=== PATIENT | male | born 1965 | race American Indian/Alaskan Native ===

== ENCOUNTER 2020-04-05 15:05 | Outpatient (CLI) | payer OTHER, SELFPAY ==
--- NOTE | ~2020-04-05 | XR_ITS ---
XR knee LT 3V DATE: 04/05/2020 15:30 INDICATION: Lateral and medial pain. No injury. TECHNIQUE: [place], AP and lateral views COMPARISON: None FINDINGS: There is prominent loss of height of the medial compartment joint space. There is mild periarticular spurring at all 3 compartments. There is hypertrophic change of the tibia l spines. No fracture or dislocation, periosteal reaction or bone destruction. 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 IMPRESSION: Tricompartment osteoarthritis involving particularly the medial com partment
== END 2020-04-05 15:06 | disposition home or self-care (01) ==
DX: M17.12 Unilateral primary osteoarthritis, left knee (principal)
CPT/HCPCS: 73562

== ENCOUNTER 2020-04-19 08:59 | Outpatient (CLI) | payer OTHER, SELFPAY ==
--- NOTE | ~2020-04-19 | MR_ITS ---
EXAMINATION: MR knee LT wo con DATE: 04/19/2020 09:53 INDICATION: Chronic left knee pain. Left knee osteoarthritis. TECHNIQUE: Magnetic resonance imaging (MRI) of the left knee was performed without intravenous contra st. Sequences included axial PD-weighted FS FSE, coronal PD-weighted FSE and PD-weighted FS FSE, sagi ttal PD-weighted FSE, and sagittal T2-weighted FS FSE. COMPARISON: Left knee radiographs 04/05/2020 FINDINGS: Medial compartment: There is a radial tear of body of medial meniscus. There is full-thickness cartilage loss of femoral condyle involving the central and medial articular surface with moderate subchondral edema-like signa l intensity. There is deep partial thickness cartilage loss of the posterior articular surface. There is full-thickness cartilage loss of tibial condyle involving the anterior and medial articular surfa ce with moderate subchondral edema-like marrow signal intensity. Marginal osteophytes are noted. Lateral compartment: Lateral meniscus is normal. Lateral compartment cartilage is normal. There are tiny marginal osteophy allyson. Patellofemoral compartment: There is deep partial thickness cartilage loss of involving patellar medial and lateral facets and me machelle ridge with mild subchondral edema-like marrow signal intensity. There is partial-thickness carti rajani loss of medial and lateral trochlea. Marginal osteophytes are noted. Ligaments and tendons: The anterior and posterior cruciate ligaments are normal. Medial collateral ligament and lateral rodrick ateral ligament complex are normal. There is mild patellar tendinopathy. Fluid: There is a large knee joint effusion. There are loose bodies in the posterior aspect of the knee join t measuring up to 12 mm. There is trace fluid in a Nice's cyst. There is mild prepatellar and superf icial infrapatellar bursitis. IMPRESSION: 1. Severe chondrosis of medial compartment and moderate chondrosis of patellofemoral compartment. 2. Tear of medial meniscus. 3. Large knee joint effusion with loose bodies. Reviewed, dictated and finalized at location A. IMPRESSION: 1. Severe chondrosis of medial compartment and moderate chondrosis of patellofe moral compartment. 2. Tear of medial meniscus. 3. Large knee joint effusion with loose bodies.
== END 2020-04-19 09:00 | disposition home or self-care (01) ==
DX: M25.562 Pain in left knee (principal); G89.29 Other chronic pain; M22.2X1 Patellofemoral disorders, right knee; S83.242A Other tear of medial meniscus, current injury, left knee, initial encounter; M25.462 Effusion, left knee; M23.42 Loose body in knee, left knee
CPT/HCPCS: 73721

== ENCOUNTER 2020-04-28 14:50 | Outpatient (CLI) | payer OTHER, SELFPAY ==
--- NOTE | 2020-04-28 14:52 | ECG_ITS ---
Measurements Intervals [place] Rate: 75 P: 24 MI: 180 QRS: 26 QRSD: 116 T: 39 QT: 386 QTc: 431 Interpretive Statements SINUS RHYTHM INTRAVENTRICULAR CONDUCTION DELAY BASELINE WANDER- AVF BORDERLINE ECG Electronically Signed On 04-28-2020 15:29:18 CDT by Mario Lerma D.O.
== END 2020-04-28 14:51 | disposition home or self-care (01) ==
PROVIDERS: PCP Family Medicine; Visit Provider Orthopaedic Surgery
DX: Z01.818 Encounter for other preprocedural examination (principal); E78.00 Pure hypercholesterolemia, unspecified
CPT/HCPCS: 93005

== ENCOUNTER 2020-05-08 00:25 | Outpatient (CLI) | payer OTHER, SELFPAY ==
[2020-05-08 17:13] LABS: SARS-CoV-2 RNA PCR Negative
== END 2020-05-08 00:26 | disposition home or self-care (01) ==
LOC: ANHCOVIDDT 00:25
PROVIDERS: Visit Provider Orthopaedic Surgery
DX: Z01.812 Encounter for preprocedural laboratory examination (principal); Z11.59 Encounter for screening for other viral diseases
CPT/HCPCS: 87635; C9803; U0003

== ENCOUNTER 2020-05-10 02:10 | Day surgery (SDC) | payer OTHER, SELFPAY ==
[2020-04-27 13:36] VITALS: BMI 28.2
[2020-05-10] VITALS (7 sets, daily range): BP systolic 146–179; BP diastolic 86–108; PULSE 59–75; RESP 11–18; TEMP 36–36.5; O2SAT 97–98
--- NOTE | 2020-05-10 07:31 | WPDHPUPDATE1 ---
History and Physical Update Update Date/Time: 05/10/20 07:31 History and Physical has been reviewed, including an updated exam of the patient. There are NO changes in the patient's condition. Risks, benefits, and alternatives have been discussed and questions answered. Patient agrees to proceed with procedure.
[2020-05-10] MEDS: LACTATED RINGERS 1,000 ML 30 ML IV CONT (09:00)
--- NOTE | 2020-05-10 09:07 | P.PNAN_ITS ---
Anes - Initial Pre Proc Eval Procedure: Operation Date: 05/10/20 10:30 Proposed Procedures p Left Knee Arthroscopy - Dewey Valle MD Date/Time: 05/10/20 09:07 Surgeon: Dewey Valle MD Pre Op Diagnosis: Left Medial Meniscus Tear Patient Data Age: 55 Gender: M Height: 1.88 m Weight: 99.79 kg Allergies Allergy/AdvReac Type Severity Reaction Status Date / Time No Known Allergies Allergy Verified 04/27/20 13:37 Home Medications Medication Instructions Recorded Confirmed Type aspirin 81 mg PO DAILY 04/27/20 04/27/20 History chlorhexidine gluconate 4 % 1 applic TOPICAL ONCE #237 ml 04/27/20 04/27/20 Rx topical liquid cholecalciferol (vitamin D3) 100 mcg PO DAILY 04/27/20 04/27/20 History [Vitamin D3] citalopram 20 mg PO DAILY 04/27/20 04/27/20 History meloxicam 15 mg PO DAILY 04/27/20 04/27/20 History multivitamin 1 tablet PO DAILY 04/27/20 04/27/20 History pravastatin 40 mg PO HS 04/27/20 04/27/20 History trazodone 150 mg PO HS 04/27/20 04/27/20 History ECG: Date of Service: 04/28/20 Procedure(s): CA 12 lead EKG Accession Number(s): [id number] cc: ~ Measurements Intervals [place] Rate: 75 P: 24 ND: 180 QRS: 26 QRSD: 116 T: 39 QT: 386 QTc: 431 Interpretive Statements SINUS RHYTHM INTRAVENTRICULAR CONDUCTION DELAY BASELINE WANDER- AVF BORDERLINE ECG Electronically Signed On 04-28-2020 15:29:18 CDT by Mario Lerma D.O. Dictated By: Mario Lerma DO 04/28/20 1522 Patient hx anesthesia problems: none Family hx anesthesia problems: none PMFSH Past Medical History Medical History (Updated 05/10/20 @ 09:09 by Dorian Fitzpatrick MD) Back pain Hearing loss Hypercholesterolemia Seasonal allergies Family History Family History (Updated 04/28/20 @ 11:14 by Jemma Mackenzie, RT(R)) Father Family history of malignant neoplasm of skin Acute myocardial infarction Other Arthritis Diabetes mellitus Heart disease Hypertension Malignant neoplasm Social History Social History (Updated 04/28/20 @ 11:14 by Jemma Mackenzie, RT(R)) Smoking status: Former smoker Smoking end date: 11/17/99 Alcohol intake: current Anes - Eval Final PreProcedure Day of Procedure 05/10/20 09:07 Patient weight: overweight Heart: regular rate and rhythm Lungs: clear to auscultation and normal air movement Airway: Mallampati scale class II Neurological: alert and oriented Last oral intake: >/= 8 hours ASA classification: II Emergent: no Anesthetic plan: proceed Anesthesia type and monitoring: general LMA Informed Consent: The patient's anesthetic plan and its attendant risks and benefits were discussed with the patient/family/POA. Questions were solicited and answers provided to the satisfaction of the patient/family/POA.
[2020-05-10] MEDS: CELECOXIB 200 MG CAPSULE PO (09:30)
[2020-05-10] MEDS: ceFAZolin 2 GM/D5W 50 ML 2 GM/50 ML BAG IVPB (10:20)
[2020-05-10] MEDS: KETOROLAC 30 MG/ML VIAL (*BKC) IV PUSH (11:11)
--- NOTE | 2020-05-10 11:30 | PM.OP ---
Procedure Note - Brief Procedure Note - Brief Date of procedure: 05/10/20 Pre-op diagnosis: Left Medial Meniscus Tear Post-op diagnosis: other (djd medial compartment) Procedure performed: left knee scope with partial medial meniscectomy, abrasion arthroplasty and major synovectomy Anesthesia: GLMA Surgeon: Dewey Valle MD Estimated blood loss (mL): 10 Complications: No immediate complications Condition: stable Disposition: PACU
--- NOTE | 2020-05-10 17:18 | OP_ITS ---
DATE OF PROCEDURE: 05/10/2020 PREOPERATIVE DIAGNOSIS: Left knee medial meniscus tear. POSTOPERATIVE DIAGNOSES: Left knee medial meniscus tear with full-thickness cartilage defects and medial femoral condyle and medial tibial plateau synovitis. PROCEDURE: Left knee arthroscopy with partial medial meniscectomy, abrasion arthroplasty, microfracture, and synovectomy. ANESTHESIA: General. COMPLICATIONS: None. INDICATIONS: This is a 55-year-old male who came in with medial-sided knee pain. He was found to have a medial meniscus tear and some mild arthrosis. He was indicated for right knee arthroscopy. DESCRIPTION OF PROCEDURE: The patient was taken to the operative room in stable condition, placed in supine position. General anesthesia was induced and then the left lower extremity was prepped and draped sterilely from the toes to the thigh. Superior medial portal used for the outflow cannula. Inferolateral portal was used for the camera. The camera was introduced. There was grade 2 chondromalacia to the patella and to the femoral groove. There was significant synovitis and Hoffa synovium in the superior medial compartment. The medial compartment was entered. There was a complex tear to the medial meniscus. There was a full-thickness defect of cartilage on the medial femoral condyle and the medial plateau. A medial portal was established. The meniscus was resected of its tear and smoothed down to a stable base. An abrasion arthroplasty was performed on the medial femoral condyle and the medial tibial plateau until there was really good bleeding bone. Synovectomy was performed in the lower medial compartment. The ACL was identified and was intact. Lateral compartment was entered. There was no significant chondromalacia and there was no tear of the lateral meniscus. Next, the patellofemoral joint underwent chondroplasty. Hoffa synovium was resected due to impingement on the knee in flexion. The instruments were removed after thorough irrigation of the knee joint. The wounds were approximated with 4-0 nylon suture. Sterile dressing was applied. The patient was extubated. Apolonia I MT: Alberto
== END 2020-05-10 12:56 | disposition home or self-care (01) ==
PROVIDERS: PCP Family Medicine; Visit Provider Orthopaedic Surgery
PROC: (CPT 29870; principal; 2020-05-10 10:30)
DX: M23.332 Other meniscus derangements, other medial meniscus, left knee (principal); M17.12 Unilateral primary osteoarthritis, left knee; M65.862 Other synovitis and tenosynovitis, left lower leg; M94.262 Chondromalacia, left knee; E78.00 Pure hypercholesterolemia, unspecified; Z79.82 Long term (current) use of aspirin; Z87.891 Personal history of nicotine dependence
CPT/HCPCS: 29881; 29879; A9270; J0131; J0690; J1100; J1170; J1885; J2250; J2405; J2704; J3010; J7120

== ENCOUNTER 2023-01-15 08:13 | Outpatient (CLI) | payer OTHER, SELFPAY ==
--- NOTE | ~2023-01-15 | CT_ITS ---
EXAMINATION: CT sinus wo con DATE: 01/15/2023 08:39 INDICATION: Sinusitis TECHNIQUE: Computed tomography (CT) of the paranasal sinuses was performed without intravenous contra st. The dose-length product was 299.51 mGy-cm. Automated exposure control and iterative reconstructio n technique were employed. COMPARISON: None FINDINGS: There is mild mucosal thickening of the maxillary and eighth white sinuses. No air-fluid le vels or mucoperiosteal reaction. There is leftward nasal septal deviation. Mastoids are pneumatized. Small kashmir bullosa. IMPRESSION: 1. Mild sinus disease of the maxillary and ethmoid sinuses. Reviewed, dictated and finalized at location B. NDLER
== END 2023-01-15 08:14 | disposition home or self-care (01) ==
PROVIDERS: Visit Provider Otolaryngology
DX: R09.82 Postnasal drip (principal); R44.8 Other symptoms and signs involving general sensations and perceptions; J32.9 Chronic sinusitis, unspecified; R05.9 Cough, unspecified; J34.3 Hypertrophy of nasal turbinates; J34.2 Deviated nasal septum; R09.81 Nasal congestion
CPT/HCPCS: 70486

== ENCOUNTER 2023-03-11 15:08 | Outpatient (CLI) | payer OTHER, SELFPAY ==
--- NOTE | 2023-03-11 15:19 | ECG_ITS ---
Measurements Intervals [place] Rate: 69 P: 30 [place]: 188 QRS: 26 QRSD: 117 T: 35 QT: 409 QTc: 440 Interpretive Statements SINUS RHYTHM MODERATE INTRAVENTRICULAR CONDUCTION DELAY [110+ ms QRS DURATION] COMPARED TO ECG 04/28/2020 15:22:07 NO SIGNIFICANT CHANGES Electronically Signed On 03-12-2023 9:34:30 CDT by Daria Bruce M.D.
== END 2023-03-11 15:09 | disposition home or self-care (01) ==
LOC: ANHSURGERY 15:12
PROVIDERS: PCP Family Medicine; Visit Provider Otolaryngology
DX: E78.00 Pure hypercholesterolemia, unspecified (principal)
CPT/HCPCS: 93005

== ENCOUNTER 2023-03-14 01:22 | Day surgery (SDC) | payer OTHER, SELFPAY ==
--- NOTE | 2023-03-10 09:07 | PC.NURSE ---
Report to the Outpatient Waiting Room, entrance under the green pavilion located off [facility], at time 0645_ on date _03/14/23. Planned Procedure Time: 0845_. Time changes happen often and if your time is changed the preop area will call you the afternoon before. - You and your visitor will be asked to self-screen and do not enter if you have any COVID symptoms. - A mask is optional within the hospital at this time. Patients may have clear liquids (water, carbonated beverages, clear teas, apple juice) until 3 hours prior to surgery with a maximum of 20 ounces. - No food from midnight until time of surgery - Infants may have breast milk until 4 hours before surgery, formula 6 hours prior to surgery. - Children will be allowed to drink immediately following surgery. If applicable, please bring a bottle or sippy cup to assist with drinking. Juice, water, soda, and popsicles are readily available. For infants on formula, please bring formula the day of surgery. Pacifiers are allowed. Take the following medications with a SIP of water the morning of surgery: __CITALOPREM, FAMOTIDINE DO NOT STOP ANY OF YOUR OTHER PRESCRIPTION MEDICATIONS PRIOR TO SURGERY ?EXCEPT THE FOLLOWING Medications to discontinue per physician SUPPLIMENTS CALL ABOUT_ INSTRUCTIONS INSTRUCTIONS FOR ASPIRIN Date to take last dose 03/11/23 Please no make-up, nail greek, hairspray, perfume, deodorant, or body powder the day of surgery. No jewelry (including any body piercings) or valuables the day of surgery, leave them at home. Please take a shower or bath the night before, or the morning of, surgery with an antibacterial soap. Wear comfortable, loose fitting clothing. Children are encouraged to wear pajamas. - Jewelry must be removed prior to entering the operating room. Rings and piercings that are not removed may be cut off. - The hospital will not accept responsibility for valuables. - Please leave all valuables, including medications, at home the day of surgery. If you are going home after surgery, a licensed electric mule driver must drive you home. - NO public transportation without another adult if you receive anesthesia. - We recommend that an adult stay with you for 24 hours following discharge. - We also recommend that you do not drive, make important decision, drink alcoholic beverages, or take any drugs that were not prescribed by your health care provider for at least 24 hours after your discharge time. For Pediatric surgeries, we recommend two adults accompany the child home. Follow any additional instructions given to you from your surgeon. If you or anyone in your household have experienced Covid symptoms in the past week, please notify your surgeon or the nurse liaison at the phone number below for possible testing. Telephone instructions given to LawrenceLucilaeliza asked if any additional questions and then verbalized understanding. Patient advised to call surgeon office or pre surgery nurse liaison [phone] if any additional questions.
[2023-03-10 09:16] VITALS: BMI 29.4
[2023-03-14] VITALS (8 sets, daily range): BP systolic 111–130; BP diastolic 67–90; PULSE 64–84; RESP 16–18; TEMP 36.2–36.3; O2SAT 95–100; BMI 28.2
[2023-03-14] MEDS: LACTATED RINGERS 1,000 ML 30 ML IV CONT ×2 (06:44→11:52)
--- NOTE | 2023-03-14 07:16 | WPDHPUPDATE1 ---
History and Physical Update Update Date/Time: 03/14/23 07:16 History and Physical has been reviewed, including an updated exam of the patient. There are NO changes in the patient's condition. Risks, benefits, and alternatives have been discussed and questions answered. Patient agrees to proceed with procedure.
--- NOTE | 2023-03-14 07:16 | PM.IMHP ---
H&P: HPI History of Present Illness Date/Time: 03/14/23 07:16 Chief Complaint: Chronic sinusitis, nasal obstruction, bilateral kashmir bullosa, hypertrophied turbinates, septal deviation Narrative: Planned procedure Review of Systems Review of Systems: All systems reviewed & are unremarkable except as noted in HPI and below [facility] Past Medical History Medical History (Updated 03/14/23 @ 07:18 by John Figueroa MD) Back pain Hearing loss Hypercholesterolemia Seasonal allergies Family History Family History Father Family history of malignant neoplasm of skin Acute myocardial infarction Other Arthritis Diabetes mellitus Heart disease Hypertension Malignant neoplasm Social History Social History Smoking packs per day: 0.05 Smoking cigarettes per day: 1.0 Years smoked: 5 Smoking pack-years: 0.25 Smoking status: Former smoker Smoking end date: 11/17/99 Additional smoking assessment comments: STOPPED 2002 Alcohol intake: current Drinks per week: 14 Alcohol use details: Frequent, daily alcohol consumption Substance use: never Lack of Transportation: No Lack of Food: Never True Current Housing: I Have Housing Concerned About Future Housing: No Difficulty Paying Gas/Electric Bills: No Difficulty Paying for Meds: No Currently Unemployed: No Education: Trade/Vocational Certificate Difficulty w/ Childcare or Family Care: No Living arrangements: with family Gender identity (if verbalized by the patient): Male Meds Home Medications and Allergies Home Medications Medication Instructions Recorded Confirmed Type aspirin 81 mg tablet,delayed 81 mg PO DAILY 04/27/20 03/10/23 History release cholecalciferol (vitamin D3) 100 100 mcg PO DAILY 04/27/20 03/10/23 History mcg (4,000 unit) capsule (Vitamin D3) citalopram 20 mg tablet 20 mg PO DAILY 04/27/20 03/10/23 History meloxicam 15 mg tablet 15 mg PO DAILY 04/27/20 03/10/23 History multivitamin 1 tablet PO DAILY 04/27/20 03/10/23 History pravastatin 40 mg tablet 40 mg PO HS 04/27/20 03/10/23 History trazodone 150 mg tablet 150 mg PO HS 04/27/20 03/10/23 History [place] 5 mg-325 mg tablet 1 tablet PO Q6H PRN pain #60 tabs 05/10/20 03/10/23 Rx (hydrocodone-acetaminophen) famotidine 20 mg tablet 20 mg PO DAILY 10/02/22 03/10/23 History azelastine 137 mcg (0.1 %) nasal 1 spray intranasal Q12H #30 mL 10/23/22 03/10/23 Rx spray aerosol fluticasone propionate 50 1 - 2 spray intranasal BID PRN 03/10/23 03/10/23 History mcg/actuation nasal ALLERGIES spray,suspension (Flonase Allergy Relief) Allergies Allergy/AdvReac Type Severity Reaction Status Date / Time No Known Allergies Allergy Verified 03/10/23 08:59 Exam Narrative: septal deviation, hypertrophied kash[place], large turbinates Assessment and Plan Assessment and plan (1) Chronic sinusitis: Code(s): J32.9 - Chronic sinusitis, unspecified Status: Acute Assessment and Plan: OR for endoscopic assisted septoplasty inferior turbinate submucosal reduction with outfracture resection of bilateral kashmir bullosa bilateral image guided endoscopic maxillary antrostomies bilateral image guided endoscopic anterior ethmoidectomies. Risks discussed including bleeding infection blindness, , post op bleeding, brain , csf leak, need for further procedures, risks of narcotic use, septal perforation. Need for further procedures. (2) Hypertrophy of both inferior nasal turbinates: Code(s): J34.3 - Hypertrophy of nasal turbinates Status: Acute (3) Nasal septal deviation: Code(s): J34.2 - Deviated nasal septum Status: Acute (4) Nasal congestion: Code(s): R09.81 - Nasal congestion Status: Acute (5) [place] bullosa: Code(s): J34.89 - Other specified disorders of nose an
[2023-03-14] MEDS: ACETAMINOPHEN 500 MG TABLET 1000 MG PO (07:17)
--- NOTE | 2023-03-14 08:43 | WPDANESEPPF ---
Anes - Initial Pre Proc Eval Procedure: Operation Date: 03/14/23 08:45 Proposed Procedures p Septoplasty - John Figueroa MD s Image Guided Bilateral Inferior Turbinectomy with Outfracture, Bilateral Resection Elvia Bullosa, Bilateral Maxillary Antrostomy without Tissue Removal, Bilateral Anterior Ethmoidectomy - John Figueroa MD Date/Time: 03/14/23 08:43 Surgeon: John Figueroa MD Pre Op Diagnosis: chronic sinusitis Patient Data Age: 57 Gender: M Height: 1.88 m Weight: 99.8 kg Last Vital Signs Temp 36.3 C L 03/14/23 06:44 Pulse 64 03/14/23 06:44 Resp 18 03/14/23 06:44 BP 130/80 03/14/23 06:44 Pulse Ox 100 03/14/23 06:44 O2 Del Method Room Air 03/14/23 06:44 Allergies Allergy/AdvReac Type Severity Reaction Status Date / Time No Known Allergies Allergy Verified 03/10/23 08:59 Home Medications Medication Instructions Recorded Confirmed Type aspirin 81 mg tablet,delayed 81 mg PO DAILY 04/27/20 03/10/23 History release cholecalciferol (vitamin D3) 100 100 mcg PO DAILY 04/27/20 03/10/23 History mcg (4,000 unit) capsule (Vitamin D3) citalopram 20 mg tablet 20 mg PO DAILY 04/27/20 03/10/23 History meloxicam 15 mg tablet 15 mg PO DAILY 04/27/20 03/10/23 History multivitamin 1 tablet PO DAILY 04/27/20 03/10/23 History pravastatin 40 mg tablet 40 mg PO HS 04/27/20 03/10/23 History trazodone 150 mg tablet 150 mg PO HS 04/27/20 03/10/23 History [place] 5 mg-325 mg tablet 1 tablet PO Q6H PRN pain #60 tabs 05/10/20 03/10/23 Rx (hydrocodone-acetaminophen) famotidine 20 mg tablet 20 mg PO DAILY 10/02/22 03/10/23 History azelastine 137 mcg (0.1 %) nasal 1 spray intranasal Q12H #30 mL 10/23/22 03/10/23 Rx spray aerosol fluticasone propionate 50 1 - 2 spray intranasal BID PRN 03/10/23 03/10/23 History mcg/actuation nasal ALLERGIES spray,suspension (Flonase Allergy Relief) Patient hx anesthesia problems: none Family hx anesthesia problems: none Results Review: All pre-operative results and documents have been reviewed as part of the pre-operative evaluation. [facility] Past Medical History Medical History (Updated 03/14/23 @ 07:18 by John Figueroa MD) Back pain Hearing loss Hypercholesterolemia Seasonal allergies Family History Family History Father Family history of malignant neoplasm of skin Acute myocardial infarction Other Arthritis Diabetes mellitus Heart disease Hypertension Malignant neoplasm Social History Social History Smoking packs per day: 0.05 Smoking cigarettes per day: 1.0 Years smoked: 5 Smoking pack-years: 0.25 Smoking status: Former smoker Smoking end date: 11/17/99 Additional smoking assessment comments: STOPPED 2002 Alcohol intake: current Drinks per week: 14 Alcohol use details: Frequent, daily alcohol consumption Substance use: never Lack of Transportation: No Lack of Food: Never True Current Housing: I Have Housing Concerned About Future Housing: No Difficulty Paying Gas/Electric Bills: No Difficulty Paying for Meds: No Currently Unemployed: No Education: Trade/Vocational Certificate Difficulty w/ Childcare or Family Care: No Living arrangements: with family Gender identity (if verbalized by the patient): Male Anes - Eval Final PreProcedure Day of Procedure 03/14/23 08:43 Patient weight: overweight Heart: regular rate and rhythm Lungs: clear to auscultation Airway: Mallampati scale class II Neurological: alert and oriented Last oral intake: >/= 8 hours ASA classification: III Emergent: no Anesthetic plan: proceed Anesthesia type and monitoring: general ETT and standard monitoring Results Review: All pre-operative results and documents have been reviewed as part of the pre-operative evaluation. Informed Consent: The patient's anesthetic plan and its attendan
[2023-03-14] MEDS: ceFAZolin 2 GM/D5W 50 ML 2 GM/50 ML BAG IVPB (09:06)
[2023-03-14] MEDS: OXYMETAZOLINE HCL 0.05% NAS 15 ML BTL (*BKC) 1 SPRAY NASAL (09:35)
[2023-03-14] MEDS: MUPIROCIN 2% OINT 22 GM TUBE 1 APPLIC EACH NARE (11:17)
[2023-03-14] MEDS: LIDO 1%/EPINEPHRINE 1:100,000 50 ML VIAL 15 ML INFILTRATE (11:18)
--- NOTE | 2023-03-14 15:04 | W.PM.PROC2 ---
Procedure Note - Detailed Date of Procedure 03/14/23 Pre-op Diagnosis chronic sinusitis, nasal obstruction, septal deviation, nasal congestion, turbinate hypertrophy, kashmir bullosa Post-op Diagnosis Same Procedure Performed right-sided resection kashmir bullosa endoscopic assisted septoplasty inferior turbinate reduction bilaterally with outfracture, endoscopic image guided bilateral maxillary antrostomies right-sided image guided endoscopic anterior ethmoidectomy left-sided image guided endoscopic total ethmoidectomy left-sided image guided endoscopic sphenoidotomy none with tissue removal. Surgeon John Figueroa MD Anesthesia General Indications See above Findings left septal deviation corrected turbinate hypertrophy well reduced large bony component. The aforementioned sinuses that were operated on were disease the left in fact was disease in the posterior aspect of the anterior ethmoids which lead to a posterior ethmoidectomy as well an open the sphenoidotomy is or is edematous tissue obstructing it. Minimal blood loss. No complications Description of Procedure patient identified consent verified. Patient brought to the operating room. Time-out performed. General anesthesia induced endotracheal tube is secured the patient's airway taped left lower. Patient was prepped draped position 2nd time-out was performed. Image guidance was initiated and confirmed. Afrin-soaked pledgets were placed in the patient's nasal passages allowed to sit for 5 minutes then removed. 0 degree to skull endoscope was utilized. 14 cc 1% lidocaine with 1 100,000 parts epinephrine was injected into the bilateral nasal septum right kashmir bullosa and heads of the inferior turbinates. [place] incision made left-sided left-sided nasal septal flap elevated. Using 7 Thai suction. Osteotome utilized to cross over right-sided nasal septal flap elevated. Deviated septum removed combination of Efrain forceps Shaq Barajas forceps and osteotome. Septum was straight afterwards. Was difficult to get the anterior / caudal portion to sit the left. When it did following the procedure. The even with the caudal septum bent to the right the right-sided nasal passages much improved. Inferior turbinates were debrided in the submucosal plane using microdebrider with turbinate blade. There were then outfractured using a [place] elevator. Right kashmir bullosa was cut in half after being injected with sickle knife straight through cut and microdebrider. Image guidance was utilized throughout the procedure. The maxillary antrostomies were performed with double ball tip probe backbiter straight through cut and down biting. Further. The anterior ethmoidectomies and posterior ethmoidectomy on the left was performed with [place] image guidance image guided microdebrider straight through cut. All the cells were opened the orbits were not violated the anterior ethmoid arteries were not violated as well. At this point was noted that the edematous tissue wash it is a prior to the left posterior ethmoidectomy was noted that edematous tissue existed over the posterior aspect of the anterior ethmoid air cells. Continued posteriorly. This was also seen on the CT. Posterior ethmoidectomy was then performed and the edematous tissues obstructing the sphenoid sinus. This was resected and the sphenoidotomy was performed. There is edematous tissue mild, throat all the aforementioned sinuses. At this point the Nicholas incision was closed with 3 interrupted 5 0 fast gut sutures. Bilateral nasal passages were suctioned the posterior choana. Nasal ports placed the bilateral middle meati I stenting the middle turbinates medially. Armando splints were then placed and sutured anteriorly using a 3 0 mattress nylon suture. Patient tolerated the procedure very well. Total blood loss 50-75 cc. There were no complication. I performed all dictated portions of the procedure. Care the patient given Anesthesiol
== END 2023-03-14 13:43 | disposition home or self-care (01) ==
PROVIDERS: PCP Family Medicine; Visit Provider Otolaryngology
PROC: (CPT 30520; principal; 2023-03-14 08:45)
PROC: (CPT 31256; 2023-03-14 08:45)
DX: J32.9 Chronic sinusitis, unspecified (principal); J34.2 Deviated nasal septum; J34.3 Hypertrophy of nasal turbinates; R09.81 Nasal congestion; J34.89 Other specified disorders of nose and nasal sinuses; E78.00 Pure hypercholesterolemia, unspecified; Z79.82 Long term (current) use of aspirin; Z87.891 Personal history of nicotine dependence
CPT/HCPCS: 31256; 61782; 31254; 31287; 31240; 30520; 30140; A9270; J0690; J1100; J2250; J2405; J2704; J3010; J7120

== ENCOUNTER 2024-02-11 07:03 | Emergency (ER) | payer OTHER, SELFPAY ==
--- NOTE | ~2024-02-11 | CT_ITS ---
EXAMINATION: CT abdomen pelvis wo con DATE: 02/11/2024 07:32 INDICATION: Right flank pain. TECHNIQUE: Computed tomography (CT) of the abdomen and pelvis was performed without intravenous contr ast. Automated exposure control and iterative reconstruction technique were employed. The dose-length product was 965.73 mGy-cm. COMPARISON: CT abdomen and pelvis 04/08/2019 FINDINGS: The visualized portions of the lung bases demonstrate mild atelectasis. There is mild scarr ing in paraspinal right lower lobe. No pleural effusion. The heart size is normal. No pericardial eff usion. There are coronary artery calcifications. There is diffuse hepatic steatosis. The gallbladder, spleen, pancreas, adrenal glands, and kidneys are normal. There is no urolithiasis. The prostate is mildly enlarged. There is diverticulosis of the colon without evidence of diverticulitis. The appendi x is normal. Aortic atherosclerosis is noted. There are no pathologically enlarged lymph nodes. There is no free intraperitoneal fluid. There is severe lumbar spondylosis. IMPRESSION: 1. No urolithiasis. 2. Diffuse hepatic steatosis. Reviewed, dictated and finalized at location A.
[2024-02-11 07:12] VITALS: BP 157/93; PULSE 72; RESP 19; TEMP 36.8; O2SAT 97
[2024-02-11] MEDS: KETOROLAC 30 MG/ML VIAL (*BKC) IV PUSH (07:36)
[2024-02-11] MEDS: CYCLOBENZAPRINE HCL 10 MG TABLET PO (07:37)
--- NOTE | 2024-02-11 07:44 | ED.BACK ---
HPI - Back Pain/Injury General Chief Complaint: Back Pain/Injury Stated Complaint: Right back pain, radiating to left. Time Seen by Provider: 02/11/24 07:15 History of Present Illness HPI Narrative: Pt presents with intermittent right sided low back pain over the last few days. Pt denies injury. Pt says it feels like spasms moving up and down right side of low back along belt line. Pt says it can happen when he is sitting or walking. Pt denies problems with bladder or bowels or numbness or weakness in legs. Pt denies urinary symptoms. Related Data Home Medications Medication Instructions Recorded Confirmed aspirin 81 mg tablet,delayed 81 mg PO DAILY 04/27/20 05/02/23 release cholecalciferol (vitamin D3) 100 100 mcg PO DAILY 04/27/20 05/02/23 mcg (4,000 unit) capsule (Vitamin D3) citalopram 20 mg tablet 20 mg PO DAILY 04/27/20 05/02/23 meloxicam 15 mg tablet 15 mg PO DAILY 04/27/20 05/02/23 multivitamin 1 tablet PO DAILY 04/27/20 05/02/23 pravastatin 40 mg tablet 40 mg PO HS 04/27/20 05/02/23 trazodone 150 mg tablet 150 mg PO HS 04/27/20 05/02/23 famotidine 20 mg tablet 20 mg PO DAILY 10/02/22 05/02/23 fluticasone propionate 50 1 - 2 spray intranasal BID PRN 03/10/23 05/02/23 mcg/actuation nasal ALLERGIES spray,suspension (Flonase Allergy Relief) Allergies Allergy/AdvReac Type Severity Reaction Status Date / Time No Known Allergies Allergy Verified 02/11/24 07:03 Review of Systems Review of Systems: All systems reviewed & are unremarkable except as noted in HPI and below PMFSH Past Medical History Medical History Back pain Hearing loss Hypercholesterolemia Nasal crusting Seasonal allergies Family History Family History Father Family history of malignant neoplasm of skin Acute myocardial infarction Other Arthritis Diabetes mellitus Heart disease Hypertension Malignant neoplasm Social History Social History Smoking packs per day: 0.05 Smoking cigarettes per day: 1.0 Years smoked: 5 Smoking pack-years: 0.25 Smoking status: Former smoker Smoking end date: 11/17/99 Additional smoking assessment comments: STOPPED 2002 Alcohol intake: current Drinks per week: 14 Alcohol use details: Frequent, daily alcohol consumption Substance use: never Lack of Transportation: No Lack of Food: Never True Current Housing: I Have Housing Concerned About Future Housing: No Difficulty Paying Gas/Electric Bills: No Difficulty Paying for Meds: No Currently Unemployed: No Education: Associate Degree Difficulty w/ Childcare or Family Care: No Living arrangements: with family Gender identity (if verbalized by the patient): Male Exam Const: General: healthy appearing and no acute distress Nutritional Appearance: well nourished Orientation/consciousness: patient oriented x3 Limitations: no limitations Resp: Effort & Inspection: normal respiratory effort Auscultation: clear to auscultation bilaterally Cardio: Rate: regular rate Rhythm: regular rhythm GI: GI Palp: Yes Soft to palpation and No Tenderness to palpation present (GI) Auscultation: normal bowel sounds : General: Yes bladder normal to palpation and Yes CVA tenderness on the right Back/Spine/Pelvis: Other: tender right partaspinous muscle with some spasm Skin: General skin exam: normal color Rashes: no rashes Wounds: no wounds Neuro: General: patient oriented x3, moves all extremities and no focal motor deficits Speech: normal speech Extrem: General: normal to inspection and no clubbing, cyanosis or edema Psych: Mental Status: mental status grossly normal Affect: normal affect Attitude: cooperative Course Vital Signs Vital signs: Vital Signs Temperature 98.3 F 02/11/24 07:12 Pulse Rate
[2024-02-11 07:45] LABS: Appearance Urine Clear (Clear); Bilirubin Urine Negative (Negative); Blood Urine Negative (Negative); Color Urine Light Yellow (Yellow); Glucose Urine UA Negative (Negative); Ketones Urine Negative (Negative); Nitrate Urine Negative (Negative); Protein Urine Negative (Negative); Urobilinogen Urine 0.2 mg/dL (0.2-1.0)
[2024-02-11 07:46] LABS: Add Urine Microscopic? NO; Leukocyte Esterase Ur Negative LEU/UL (Negative)
== END 2024-02-11 08:26 | disposition home or self-care (01) ==
PROVIDERS: Emergency Provider Emergency Medicine; PCP Family Medicine
DX: M54.50 Low back pain, unspecified (principal); E78.00 Pure hypercholesterolemia, unspecified; Z87.891 Personal history of nicotine dependence; Z79.82 Long term (current) use of aspirin
CPT/HCPCS: 74176; 81003; 96374; 99284; A9270; J1885